=== PATIENT | male | born 1965 | race American Indian/Alaskan Native ===

== ENCOUNTER 2017-04-03 07:37 | Emergency (ER) | payer OTHER ==
[2017-04-03 07:44] LABS: Basophils % (Auto) 0.6 % (0.0-1.8); Eosinophils % (Auto) 1.5 % (0.0-4.3); Hematocrit 37.7 % (35.5-45.6); Hemoglobin 13.3 gm/dl (11.8-15.2); Mean Corpuscular HGB Conc 35 % (32-34); Mean Corpuscular Hemoglobin 32 pg (28-32); Mean Corpuscular Volume 90 fl (84-94); Platelet Count 162 K/mm3 (140-440); Red Cell Distribution Width 13.2 % (13.2-15.2); White Blood Count 6.8 K/mm3 (4.5-11.0)
[2017-04-03 07:54] LABS: INR 0.89 (0.87-1.13)
--- NOTE | 2017-04-03 07:54 | Cat Scan Report ---
FINAL REPORT EXAM: CT HEAD/BRAIN WO CON HISTORY: neuro deficits \T\lt; 6hrs or sx present upon awakening TECHNIQUE: Routine axial imaging was obtained of the brain without IV contrast. FINDINGS: There are no attenuation abnormalities. The ventricular system is appropriate in size and is symmetric. The basal cisterns appear normal. The visualized sinuses are clear. The mastoid air cells are well pneumatized. The calvarium appears intact. IMPRESSION: Normal exam.
[2017-04-03 07:55] LABS: Partial Thromboplastin Time 26.7 Sec. (24.2-36.6)
[2017-04-03 08:00] LABS: Anion Gap 16 mmol/L; BUN/Creatinine Ratio 13; Blood Urea Nitrogen 13 mg/dL (9-20); Calcium 8.9 mg/dL (8.4-10.2); Carbon Dioxide 25 mmol/L (22-30); Chloride 104.1 mmol/L (98-107); Glucose 138 mg/dL (75-100); Potassium 4.1 mmol/L (3.6-5.0); Sodium 141 mmol/L (137-145)
[2017-04-03] MEDS ORDERED: NACL 0.9% 1000 ML 1,000 ML ONE (08:29)
[2017-04-03] MEDS ORDERED: NACL 0.9% 1000 ML 1,000 ML IV ONE (08:34)
--- NOTE | 2017-04-03 08:38 | Emergency Department Report ---
ED Neuro Deficit HPI - General Chief Complaint: Neuro Symptoms/Deficit Stated Complaint: CVA Time Seen by Provider: 04/03/17 07:37 Source: patient, family, EMS Mode of arrival: Stretcher Limitations: Physical Limitation - History of Present Illness Initial Comments: 51 yo male fell this am at 06:50 when he woke up. HE WAS LAST SEEN NORMAL AT MIDNIGHT BY HIS . HE ADMITS TO LAST FEELING WELL AT MIDNIGHT LAST NIGHT. PT HAD SLURRED SPEECH AND LEFT SIDED WEAKNESS AND SENSORY LOSS WHILE HE WAS ON THE WAS TO [facility]. HER HE DENIES SENSORY LOSS AND NO LONGER HAS SLURRED SPEECH. HE HAS A H/O SARCOMA AND HTN. -: Sudden History of same: No Place: home Severity: severe Quality: weak Improves With: none Worsens With: none On Anticoagulants: No Context: sudden onset Associated Symptoms: weakness Treatments Prior to Arrival: none - Related Data Home Medications: Home Medications Medication Instructions Recorded Confirmed Last Taken Atorvastatin (Nf) [Lipitor (Nf)] 10 mg PO DAILY 04/03/17 04/03/17 04/02/17 Esomeprazole Magnesium 40 mg PO DAILY 04/03/17 04/03/17 04/02/17 Meloxicam 15 mg PO DAILY 04/03/17 04/03/17 04/02/17 Misoprostol 200 mcg PO BID 04/03/17 04/03/17 04/02/17 amLODIPine [Norvasc] 5 mg PO DAILY 04/03/17 04/03/17 04/02/17 Allergies/Adverse Reactions: Allergies Allergy/AdvReac Type Severity Reaction Status Date / Time No Known Allergies Allergy Verified 04/03/17 07:39 ED Review of Systems ROS: Stated complaint: CVA Other details as noted in HPI Constitutional: denies: chills, fever Eyes: denies: eye pain, eye discharge, vision change ENT: denies: ear pain, throat pain Respiratory: denies: cough, shortness of breath, wheezing Cardiovascular: denies: chest pain, palpitations Endocrine: no symptoms reported Gastrointestinal: denies: abdominal pain, nausea, diarrhea Genitourinary: denies: urgency, dysuria Musculoskeletal: denies: back pain, joint swelling, arthralgia Skin: denies: rash, lesions Neurological: weakness (LEFT UPPER AND LOWER EXTREMITIES), paresthesias, abnormal gait (UNABLE TO WALK OR STAND). denies: headache Psychiatric: denies: anxiety, depression Hematological/Lymphatic: denies: easy bleeding, easy bruising ED Past Medical Hx - Past Medical History Previous Medical History?: Yes Hx Hypertension: Yes Hx GERD: Yes - Surgical History Past Surgical History?: Yes Additional Surgical History: rotator cuff. sarcoma removed from right side of neck - Social History Smoking Status: Never Smoker Substance Use Type: None - Medications Home Medications: Home Medications Medication Instructions Recorded Confirmed Last Taken Type Atorvastatin (Nf) [Lipitor (Nf)] 10 mg PO DAILY 04/03/17 04/03/17 04/02/17 History Esomeprazole Magnesium 40 mg PO DAILY 04/03/17 04/03/17 04/02/17 History Meloxicam 15 mg PO DAILY 04/03/17 04/03/17 04/02/17 History Misoprostol 200 mcg PO BID 04/03/17 04/03/17 04/02/17 History amLODIPine [Norvasc] 5 mg PO DAILY 04/03/17 04/03/17 04/02/17 History ED Neuro Physical Exam - General Limitations: Physical Limitation General appearance: alert, in no apparent distress Suspected Stroke: Yes - Head Head exam: Present: atraumatic, other (LEFT SIDED FACIAL DROOP) - Eye Eye exam: Present: normal appearance, PERRL, EOMI. Absent: scleral icterus, conjunctival injection, nystagmus - ENT ENT exam: Present: mucous membranes moist - Neck Neck exam: Present: normal inspection, other (RIGHT NECK SCAR) - Respiratory Respiratory exam: Present: normal lung sounds bilaterally. Absent: respiratory distress, wheezes, rales, rhonchi - Cardiovascular Cardiovascular Exam: Present: regular rate, normal rhythm, normal heart sounds. Absent: bradycardia, tachycardia, irregular rhythm, systolic murmur, diastolic murmur, rubs, gallop - GI/Abdominal GI/Abdominal exam: Present: soft, normal bowel sounds. Absent: distended - Rectal Rectal exam: Present: deferred - Extremities Exam Extremities exam: Present: normal inspection - Expanded Upper Extremity Exam Left Upper Arm exam: Absent: full ROM (NO MOVEMENT) - Expanded Lower Extremity Exam Left Hip exam: Absent: full ROM (NO MOVEMENT) - Back Exam Back exam: Present: normal inspection - Neurological Exam Neurological exam: Present: alert, oriented X3 - NIHSS Assessment Interval: Baseline (NOT AT BASELINE) 1a. Level of Consciousness: alert 1b. LOC Questions: answers correctly 1c. LOC Commands: performs 1 task correctly 2. Best Gaze: normal 3. Visual: no visual loss 4. Facial Palsy: partial paralysis 5b. Motor Arm Right: no drift 5a. Motor Arm Left: no movement (LEFT) 6a. Motor Leg Left: no movement 6b. Motor Leg Right: no drift 7. Limb Ataxia: present 2 limbs 8. Sensory: normal 9. Best Language: no aphasia 10. Dysarthria: mild/moderate dysarthria 11. Extinction/Inattention: no abnormality Total Score: 14 Stroke Severity: Moderate Stroke - Psychiatric Psychiatric exam: Present: normal affect, normal mood - Skin Skin exam: Present: warm, dry, intact, normal color. Absent: rash ED Course Vital Signs 04/03/17 04/03/17 04/03/17 07:37 07:49 08:01 Temperature 97.9 F Pulse Rate 60 60 58 L Respiratory 14 21 13 Rate Blood Pressure 117/69 109/72 O2 Sat by Pulse 100 98 Oximetry 04/03/17 08:06 Temperature Pulse Rate Respiratory 18 Rate Blood Pressure O2 Sat by Pulse 100 Oximetry - Reevaluation(s) Reevaluation #1: 04/03/17 08:44 DR LULA ALLISON ,NEUROLOGIST CONSULTED AND GAVE PT NIH STROKE SCALE OF 15 Reevaluation #2: 04/03/17 08:49 DR AUSTIN, NEUROLOGIST FROM [place] HAS ACCEPTED THE PT FOR TRANSFER AND EMBOLECTOMY. - Lab Data Result diagrams: 04/03/17 07:35 04/03/17 07:35 Lab Results 04/03/17 04/03/17 04/03/17 Range/Units 07:35 07:35 07:35 WBC 6.8 (4.5-11.0) K/mm3 RBC 4.20 (3.65-5.03) M/mm3 Hgb 13.3 (11.8-15.2) gm/dl Hct 37.7 (35.5-45.6) % MCV 90 (84-94) fl MCH 32 (28-32) pg MCHC 35 H (32-34) % RDW 13.2 (13.2-15.2) % Plt Count 162 (140-440) K/mm3 Lymph % (Auto) 46.4 H (13.4-35.0) % [place] % (Auto) 6.3 (0.0-7.3) % Eos % (Auto) 1.5 (0.0-4.3) % Baso % (Auto) 0.6 (0.0-1.8) % Lymph # 3.2 (1.2-5.4) K/mm3 [place] # 0.4 (0.0-0.8) K/mm3 Eos # 0.1 (0.0-0.4) K/mm3 Baso # 0.0 (0.0-0.1) K/mm3 Seg Neutrophils % 45.2 (40.0-70.0) % Seg Neutrophils # 3.1 (1.8-7.7) K/mm3 PT 12.5 (12.2-14.9) Sec. INR 0.89 (0.87-1.13) APTT 26.7 (24.2-36.6) Sec. Thrombin Time (15.1-19.6) Sec. Sodium 141 (137-145) mmol/L Potassium 4.1 (3.6-5.0) mmol/L Chloride 104.1 (98-107) mmol/L Carbon Dioxide 25 (22-30) mmol/L Anion Gap 16 mmol/L BUN 13 (9-20) mg/dL Creatinine 1.0 (0.8-1.5) mg/dL Estimated GFR > 60 ml/min BUN/Creatinine Ratio 13 % Glucose 138 H (75-100) mg/dL Calcium 8.9 (8.4-10.2) mg/dL Troponin T < 0.010 (0.00-0.029) ng/mL 04/03/17 Range/Units 07:35 WBC (4.5-11.0) K/mm3 RBC (3.65-5.03) M/mm3 Hgb (11.8-15.2) gm/dl Hct (35.5-45.6) % MCV (84-94) fl MCH (28-32) pg MCHC (32-34) % RDW (13.2-15.2) % Plt Count (140-440) K/mm3 Lymph % (Auto) (13.4-35.0) % [place] % (Auto) (0.0-7.3) % Eos % (Auto) (0.0-4.3) % Baso % (Auto) (0.0-1.8) % Lymph # (1.2-5.4) K/mm3 [place] # (0.0-0.8) K/mm3 Eos # (0.0-0.4) K/mm3 Baso # (0.0-0.1) K/mm3 Seg Neutrophils % (40.0-70.0) % Seg Neutrophils # (1.8-7.7) K/mm3 PT (12.2-14.9) Sec. INR (0.87-1.13) APTT (24.2-36.6) Sec. Thrombin Time 17.4 (15.1-19.6) Sec. Sodium (137-145) mmol/L Potassium (3.6-5.0) mmol/L Chloride (98-107) mmol/L Carbon Dioxide (22-30) mmol/L Anion Gap mmol/L BUN (9-20) mg/dL Creatinine (0.8-1.5) mg/dL Estimated GFR ml/min BUN/Creatinine Ratio % Glucose (75-100) mg/dL Calcium (8.4-10.2) mg/dL Troponin T (0.00-0.029) ng/mL - EKG Data -: EKG Interpreted by [place] EKG shows normal: sinus rhythm, ST-T waves (EARLY REPOLARIZATION) Rate: normal - Radiology Data Radiology results: report reviewed CT OF HEAD: NEGATIVE Critical care attestation.: If time is entered above; I have spent that time in minutes in the direct care of this critically ill patient, excluding procedure time. ED Disposition Clinical Impression: CVA (cerebral vascular accident) Qualifiers: CVA mechanism: thrombosis Precerebral and cerebral artery: middle cerebral artery Laterality of affected vessel: left Qualified Code(s): I63.312 - Cerebral infarction due to thrombosis of left middle cerebral artery Disposition: DC/TX-70 ANOTHER TYPE HLTHCARE Is pt being admited?: Yes Does the pt Need Aspirin: No Condition: Serious Referrals: PRIMARY CARE, [Primary Care Provider] - 3-5 Days Time of Disposition: 08:44
[2017-04-03 08:45] VITALS: BP 115/73
--- NOTE | 2017-04-03 09:23 | Cat Scan Report ---
FINAL REPORT PROCEDURE: CT ANGIO HEAD TECHNIQUE: Consent was obtained. IV contrast was administered and axial sections as well as post processed reformatted and maximal intensity projection images were obtained through the head. HISTORY: cva left side COMPARISON: Noncontrast head CT 04/03/2017 FINDINGS: There is no enhancing intra or extra-axial mass. The dural venous sinuses and segmentally seen veins are unremarkable. There is normal enhancement of the vertebral arteries at the skullbase, the left being dominant. The basilar and posterior cerebral arteries enhance normally. The imaged left internal carotid artery enhances normally with mild calcific atherosclerosis parasellar, cavernous, and supraclinoid. The right internal carotid artery is occluded at the inferior-most aspect of the examination. There is asymmetrically diminished flow involving the right middle cerebral artery and its distal branches when compared to the contralateral side. Thrombus involving the right M1 segment is not excluded. The anterior cerebral arteries enhance fairly symmetrically with cross-filling of the right anterior cerebral artery via a patent A-comm and PCOM. The left middle cerebral artery and its branches are unremarkable. There is no aneurysm or vascular malformation. IMPRESSION: Occluded right internal carotid artery with less florid enhancement of the right middle cerebral artery when compared to the contralateral side likely supplied via a patent anterior communicating and posterior communicating artery. Thrombus involving the right M1 segment is not excluded as well.
--- NOTE | 2017-04-03 09:42 | Cat Scan Report ---
FINAL REPORT PROCEDURE: CT ANGIO NECK TECHNIQUE: Consent was obtained. IV contrast was administered and axial sections and post processed maximum intensity projection and reformatted images were viewed through the neck. HISTORY: cva left side COMPARISON: No prior studies are available for comparison. FINDINGS: The vertebral arteries enhance. The left is dominant, the right diminutive. The left common carotid artery enhances normally. There is mixed hard and soft plaque at the left carotid bulb without high-grade stenosis or vascular occlusion. Normal distal flow is seen with mild calcific atherosclerosis noted at the siphon. Smooth approximate 50 percent maximal narrowing of the right common carotid artery with peripheral thrombus is present. Mixed hard and soft plaque at the level of the carotid bulb is present with immediate distal occlusion. Immediate proximal saccular prominence of the vessel 1.7 centimeters in maximal length precludes exclusion of pseudoaneurysm. Prior anterior cervical metallic fusion extending from C5 through C7 levels is present as well as inter vertebral spacers seen. There is no evident hematoma. Prior resection of the right submandibular gland and either resection or fatty replacement of the right parotid gland is seen. There is air lateral to the right vallecular and piriform sinus anterior lateral to the right proximal ICA 1.7 x 0.8 centimeters. This is seen for example on series 3, image 66. IMPRESSION: Smooth approximate 50 percent narrowing of the right common carotid artery with peripheral thrombus. An element of dissection as well as immediate distal poststenotic dilatation or pseudoaneurysm is not excluded. Proximal right ICA occlusion. Prior left submandibular gland resection with fatty atrophy versus resection of the right parotid gland. Air within the right neck adjacent to the proximal right ICA, right piriform sinus and vallecula of uncertain etiology. Laryngeal is questioned. Prior cervical metallic fusion. This report was discussed with Dr. Murillo at 9:36 a.m. Eastern standard time, 04/03/2017.
== END 2017-04-03 09:08 | disposition other institution (70) ==
LOC: ED 07:37
DX: I63.9 Cerebral infarction, unspecified (principal); I10 Essential (primary) hypertension; K21.9 Gastro-esophageal reflux disease without esophagitis
CPT/HCPCS: 36415; 70450; 70496; 70498; 80048; 84484; 85025; 85610; 85670; 85730; 93005; 93010; 96360; 99285; J7030; Q9967

== ENCOUNTER 2017-05-27 17:04 | Emergency (ER) | payer OTHER ==
[2017-05-27 17:47] VITALS: BP 109/70
== END 2017-05-27 19:32 | disposition left against medical advice (07) ==
LOC: ED 17:04
DX: T58.91XA Toxic effect of carbon monoxide from unspecified source, accidental (unintentional), initial encounter (principal); Z53.21 Procedure and treatment not carried out due to patient leaving prior to being seen by health care provider; Y93.89 Activity, other specified; Y99.8 Other external cause status; Y92.89 Other specified places as the place of occurrence of the external cause